=== PATIENT | female | born 1945 | race Caucasian/White ===

== ENCOUNTER → 2016-10-06 | Outpatient (CLI) | payer MEDICARE, OTHER ==
[~2016-10-06] VITALS: Ht 160 cm; Wt 161.0 kg
[~2016-10-06] MED LIST: CHLORHEXIDINE GLUCONATE 2 % 1 PACK (2 CLOTHS) TOPICAL PRN; CHOL5000 PO; FENO160T PO; FOLI1TAB6 PO; GABA300C5 PO; INSULIN HUMAN REGULAR 1,000 UNITS/10 ML VIAL SQ PRN; LACTATED RINGER'S 1000 ML IV PRN; LISI10TA3 PO; METOPROLOL TARTRATE 25 MG TAB PO PRN; NOVO7030P2 SQ; PLAQ200T PO; POVIDONE IODINE 5% (ANTISEPSIS KIT) 4 APPLICATIONS EACH NARE PRN; PRAV40TA2 PO; PROPOFOL 200 MG/20 ML AMP IV ONE; SODIUM CHLORID 0.9% 500 ML IV PRN; TYLE325T PO
[2016-10-06 07:25] VITALS: BP 127/69; PULSE 61; RESP 20; TEMP 97.6; O2SAT 96
--- NOTE | 2016-10-06 08:53 | GIPROC ---
[facility] [address] [facility]. 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 TOPICAL ANESTHETIC: none CONSENT: The patient understands the risks and benefits of the procedure and understands that these risks include, but are not limited to: sedation, allergic reaction, infection, perforation and/or bleeding. Alternative means of evaluation and treatment include, among others: physical exam, x-rays, and/or surgical intervention. The patient elects to proceed with this endoscopic procedure. medical equipment was checked for proper function. Hand hygiene and appropriate measures for infection prevention was taken. After the risks, benefits and alternatives of the procedure were thoroughly explained, Informed consent was verified, confirmed and timeout was successfully executed by the treatment team. The patient was anesthetized with anesthesia and the Pentax EG-[id number] endoscope was introduced through the mouth and advanced to the anastomosis. There was stricture at the anastomosis that the scope snugly passed through. 18 ballon dilator was used to dilated structure. This was done x3 for 30seconds at a time. Post dilation stricture was more patent scope passed easily through, no bleeding. The blind limb is 2cm in lenght appropriate size. The instrument was slowly withdrawn as the mucosa was fully examined. Stricture of gastrojejunostomy. Dilation was performed at gastrojejunostomy. DILATOR: SIZE(S): RESISTANCE: HEME: APPEARANCE: Dilator: Balloon over guidewire Size(s): 18 Resistance: moderate Appearance: adequate COMMENT: dilated x3 Retroflexion was not performed ADVERSE EVENTS: There were no complications. IMPRESSIONS: 1. Stricture of gastrojejunostomy 2. Retroflexion was not performed RECOMMENDATIONS: Continue PPI REPEAT EXAM: Return as needed for EGD with dilatation Jimmie Vaca MD eSigned: Jimmie Vaca MD 10/06/2016 8:53 AM cc: Kayode Orellana M.D.
[2016-10-06 09:20] VITALS: BP 126/65; PULSE 58; RESP 18; O2SAT 99
== END ==
LOC: HEND 05:32
PROVIDERS: ATTEND Surgery
DX: Z01.818 Encounter for other preprocedural examination (principal); E66.01 Morbid (severe) obesity due to excess calories; I10 Essential (primary) hypertension; E11.9 Type 2 diabetes mellitus without complications; Z79.4 Long term (current) use of insulin; R19.8 Other specified symptoms and signs involving the digestive system and abdomen; Z72.4 Inappropriate diet and eating habits
CPT/HCPCS: 88305; 88312

== ENCOUNTER 2016-12-09 14:41 | Inpatient (IN) | payer OTHER, MEDICARE ==
[~2016-12-09] VITALS: Ht 157.5 cm; Wt 116.0 kg
[~2016-12-09 14:41] MED LIST changes: -CHLORHEXIDINE GLUCONATE 2 % 1 PACK (2 CLOTHS) TOPICAL PRN; -INSULIN HUMAN REGULAR 1,000 UNITS/10 ML VIAL SQ PRN; -LACTATED RINGER'S 1000 ML IV PRN; -METOPROLOL TARTRATE 25 MG TAB PO PRN; -POVIDONE IODINE 5% (ANTISEPSIS KIT) 4 APPLICATIONS EACH NARE PRN; -PROPOFOL 200 MG/20 ML AMP IV ONE; -SODIUM CHLORID 0.9% 500 ML IV PRN
[2016-12-12 05:35] VITALS: BP 116/67; PULSE 72; RESP 18; TEMP 98.1; O2SAT 97
[2016-12-12] MEDS ORDERED: APREPITANT 40 MG CAP ONE (06:36)
[2016-12-12] MEDS ORDERED: SCOPOLAMINE 1.5 MG PATCH ONE (06:36)
[2016-12-12] MEDS ORDERED: ONDANSETRON HCL 4 MG/2 ML VIAL ONE (06:37)
[2016-12-12] MEDS ORDERED: LACTATED RINGER'S 1000 ML INJ 1,000 ML ONE (06:37)
[2016-12-12] MEDS ORDERED: ceFAZolin 2 GM PREMIX 50 ML ONE (06:37)
[2016-12-12] MEDS ORDERED: ACETAMINOPHEN 1000 MG/100 ML VIAL IV ONE (06:37)
[2016-12-12] MEDS ORDERED: SODIUM CHLORID 0.9% 500 ML IV PRN (06:45)
[2016-12-12] MEDS ORDERED: ONDANSETRON HCL 4 MG/2 ML VIAL IV PUSH SCH (06:45)
[2016-12-12] MEDS ORDERED: SCOPOLAMINE 1.5 MG PATCH T-DERMAL SCH (06:45)
[2016-12-12] MEDS ORDERED: METOPROLOL TARTRATE 25 MG TAB PO PRN (06:45)
[2016-12-12] MEDS ORDERED: LACTATED RINGER'S 1000 ML IV PRN (06:45)
[2016-12-12] MEDS ORDERED: ceFAZolin 2 GM PREMIX 50 ML IV SCH (06:45)
[2016-12-12] MEDS ORDERED: POVIDONE IODINE 5% (ANTISEPSIS KIT) 4 APPLICATIONS EACH NARE PRN (06:45)
[2016-12-12] MEDS ORDERED: CHLORHEXIDINE GLUCONATE 2 % 1 PACK (2 CLOTHS) TOPICAL PRN (06:45)
[2016-12-12] MEDS ORDERED: APREPITANT 40 MG CAP PO SCH (06:45)
[2016-12-12] MEDS ORDERED: BUPIVACAINE/EPINEPHRINE 0.25% 50 ML VIAL ONE (06:52)
[2016-12-12] MEDS: ACETAMINOPHEN 1000 MG/100 ML VIAL IV SCH ×5 (06:54→19:29)
[2016-12-12] MEDS ORDERED: metroNIDAZOLE 500 MG INJ 100 ML IV ONE (07:22)
[2016-12-12] MEDS ORDERED: METHYLENE BLUE 100 MG/10 ML VIAL OTHER ONE (07:53)
[2016-12-12] MEDS ORDERED: diphenhydrAMINE HCL 50 MG/ML VIAL IV PRN (10:15)
[2016-12-12] MEDS ORDERED: ACETAMINOPHEN 325MG/HYDROcodone 7.5MG/15ML UDC PO PRN (10:15)
[2016-12-12] MEDS ORDERED: HYDROmorphone HCL 2 MG TAB PO PRN (10:15)
[2016-12-12] MEDS ORDERED: diphenhydrAMINE HCL ELIXIR 12.5 MG/5 ML CUP PO PRN (10:15)
[2016-12-12] MEDS ORDERED: ENALAPRILAT 1.25 MG/ML VIAL IV PUSH PRN (10:15)
[2016-12-12] MEDS ORDERED: SODIUM CHLORIDE 0.9% FLUSH 10 ML FLUSH PRN (10:15)
[2016-12-12] MEDS: PANTOPRAZOLE SOD 40 MG DELAYED RELEASE TAB PO SCH (10:15)
[2016-12-12] MEDS ORDERED: ONDANSETRON HCL 4 MG/2 ML VIAL IV PRN ×2 (10:15→12:00)
[2016-12-12] MEDS ORDERED: Post-op Orders (for Pharmacy) MISC OTHER ONE (10:22)
[2016-12-12] MEDS ORDERED: fentaNYL CITRATE 250 MCG/5 ML AMP ONE (10:29)
[2016-12-12] MEDS: D5-1/2 NS + KCL 20 MEQ INJ 1,000 ML IV SCH ×2 (10:30→18:09)
[2016-12-12] MEDS ORDERED: *morphine SULFATE 8 MG/ML PERIprocedure ONLY ONE (10:52)
[2016-12-12] MEDS: PANTOPRAZOLE SODIUM 40 MG VIAL IV PUSH SCH (11:00)
--- NOTE | 2016-12-12 11:39 | HHI.PR ---
Immediate Post Op Note Procedure Date: Dec 12, 2016 Pre Op Diagnosis: morbid obesity BMI 45, yulissa, ra, htn, dm Post Op Diagnosis: same Surgeon: Jimmie Vaca MD Mobile Mechanic(s): Dr. Kayode Orellana Procedure: lap RYGB, HH Repair Findings: no leak with methylene blue Complications: none Specimen(s) removed: none Estimated blood loss: 10cc Anesthesia: General Drains: None Patient to: PACU Patient Condition: Good Jimmie Vaca MD Dec 12, 2016 11:39
[2016-12-12] MEDS ORDERED: LACTATED RINGER'S 1000 ML INJ 1,000 ML IV ONE (12:00)
[2016-12-12] MEDS ORDERED: ePHEDrine/NS 25 MG/5 ML SYR IV ONE (12:00)
[2016-12-12] MEDS ORDERED: ONDANSETRON HCL 4 MG/2 ML VIAL IV PUSH ONE (12:00)
[2016-12-12] MEDS ORDERED: NEOSTIGMINE 3 MG/3 ML SYR IV ONE (12:00)
[2016-12-12] MEDS ORDERED: PROPOFOL 200 MG/20 ML AMP IV ONE (12:00)
[2016-12-12] MEDS ORDERED: PHENYLEPH/NS 1000 MCG/10 ML SYR IV ONE (12:00)
[2016-12-12] MEDS: ACETAMINOPHEN 325MG/HYDROcodone 7.5MG/15ML UDC PO PRN ×2 (12:05→17:52)
[2016-12-12] MEDS: METOCLOPRAMIDE HCL 10 MG/2 ML VIAL IV PUSH SCH ×2 (12:06→17:53)
[2016-12-12] MEDS: metroNIDAZOLE 500 MG INJ 100 ML IV SCH (15:20)
[2016-12-12 16:00] VITALS: BP 162/73; PULSE 84; RESP 17; TEMP 95.4; O2SAT 96
[2016-12-12 16:19] VITALS: O2SAT 96
[2016-12-12] MEDS: RESP: ALBUTEROL 2.5 MG/3 ML NEB (SCH) INH ×3 (16:19→23:54)
[2016-12-12] MEDS ORDERED: MORPHINE SULFATE 4 MG/ML INJ IV PRN (17:00)
[2016-12-12] MEDS: ENOXAPARIN SODIUM 40 MG/0.4 ML SYRINGE SQ SCH (18:01)
[2016-12-12 20:00] VITALS: BP 178/73; PULSE 88; RESP 18; TEMP 96.6; O2SAT 93
[2016-12-12] MEDS: SODIUM CHLOR 0.9% 1000 ML INJ 1,000 ML IV SCH (20:30)
[2016-12-12] MEDS: LOW DOSE INSULIN NOVOLIN REGULAR SUPPLEMENTAL SCALE SQ SCH (21:00)
[2016-12-12] MEDS: SODIUM CHLORIDE 0.9% FLUSH 10 ML FLUSH IV FLUSH SCH (21:00)
[2016-12-12] MEDS ORDERED: DEXTROSE 50% IN WATER 50 ML VIAL(D50) IV PUSH PRN (21:15)
[2016-12-12] MEDS ORDERED: GLUCAGON 1 MG/ML VIAL OTHER PRN (21:15)
[2016-12-12] MEDS: INSULIN HUMAN REGULAR 1,000 UNITS/10 ML VIAL SQ PRN (22:12)
[2016-12-12 23:57] VITALS: O2SAT 95
[2016-12-13] VITALS (9 sets, daily range): BP systolic 119–159; BP diastolic 59–72; PULSE 62–86; RESP 15–20; TEMP 96.7–97.5; O2SAT 92–97
[2016-12-13] MEDS: METOCLOPRAMIDE HCL 10 MG/2 ML VIAL IV PUSH SCH ×2 (00:29→06:07)
[2016-12-13] MEDS: metroNIDAZOLE 500 MG INJ 100 ML IV SCH ×2 (00:30→10:40)
[2016-12-13] MEDS: ACETAMINOPHEN 1000 MG/100 ML VIAL IV SCH ×3 (01:56→06:25)
[2016-12-13] MEDS: RESP: ALBUTEROL 2.5 MG/3 ML NEB (SCH) INH ×6 (04:00→23:51)
[2016-12-13] MEDS: SODIUM CHLOR 0.9% 1000 ML INJ 1,000 ML IV SCH ×3 (04:30→21:06)
[2016-12-13 05:18] LABS: AUTOMATED NEUTROPHIL # 11.1 TH/MM3 (1.8-7.7); BASOPHIL % 0.2 % (0.0-2.0); EOSINOPHIL % 0.1 % (0.0-4.0); HEMO FLAGS DIFF FINAL; LYMPH % 7.4 % (9.0-44.0); LYMPHOCYTE # 0.9 TH/MM3 (1.0-4.8); MEAN CELL VOLUME 91.5 FL (80.0-100.0); MEAN CORPUSCULAR HEMOGLOBIN 29.2 PG (27.0-34.0); MEAN CORPUSCULAR HGB CONC 31.9 % (32.0-36.0); MONO % 5.4 % (0.0-8.0); NEUT % 86.9 % (16.0-70.0); PLATELET COUNT 245 TH/MM3 (150-450); RED BLOOD COUNT 4.37 MIL/MM3 (4.00-5.30); WHITE BLOOD COUNT 12.7 TH/MM3 (4.0-11.0)
[2016-12-13 05:32] LABS: MAGNESIUM 2.1 MG/DL (1.5-2.5)
[2016-12-13] MEDS: INSULIN HUMAN REGULAR 1,000 UNITS/10 ML VIAL SQ PRN (06:23)
[2016-12-13] MEDS: LOW DOSE INSULIN NOVOLIN REGULAR SUPPLEMENTAL SCALE SQ SCH ×2 (06:25→11:47)
[2016-12-13] MEDS: SODIUM CHLORIDE 0.9% FLUSH 10 ML FLUSH IV FLUSH SCH ×2 (09:00→21:02)
[2016-12-13] MEDS: PANTOPRAZOLE SOD 40 MG DELAYED RELEASE TAB PO SCH (09:00)
[2016-12-13] MEDS: ACETAMINOPHEN 325MG/HYDROcodone 7.5MG/15ML UDC PO PRN ×2 (09:59→23:49)
[2016-12-13] MEDS: PANTOPRAZOLE SODIUM 40 MG VIAL IV PUSH SCH (10:02)
--- NOTE | 2016-12-13 10:21 | HHI.PR ---
Subjective Subjective Notes 71yo female POD#1 laparoscopic RNY and Hiatal hernia repair. Sitting up in chair. Complains of some nausea and post op tenderness. Tolerating PO fluids. No flatus yet Objective Vitals/I&O Vital Signs Date Time Temp Pulse Resp B/P Pulse Ox O2 Delivery O2 Flow Rate FiO2 12/13/16 04:00 97.4 83 20 144/65 93 12/13/16 00:00 97.5 86 18 119/59 92 12/12/16 23:57 95 21 12/12/16 20:00 96.6 88 18 178/73 93 12/12/16 16:19 96 Nasal Cannula 2.00 12/12/16 16:00 95.4 84 17 162/73 96 12/12/16 11:25 79 18 137/5 94 Nasal Cannula 2 12/12/16 11:15 80 18 133/60 93 Nasal Cannula 2 12/12/16 11:00 74 18 131/62 92 Nasal Cannula 2 12/12/16 10:45 75 18 129/55 94 Nasal Cannula 2 12/12/16 10:30 79 18 126/59 95 Nasal Cannula 4 12/12/16 10:23 97.5 84 18 134/63 99 Simple Mask 10 Vital Signs Date Time Temp Pulse Resp B/P Pulse Ox O2 Delivery O2 Flow Rate FiO2 12/13/16 04:00 97.4 83 20 144/65 93 12/12/16 23:57 21 12/12/16 16:19 Nasal Cannula 2.00 Labs Laboratory Tests Test 12/13/16 04:16 White Blood Count 12.7 Red Blood Count 4.37 Hemoglobin 12.7 Hematocrit 40.0 Mean Corpuscular Volume 91.5 Mean Corpuscular Hemoglobin 29.2 Mean Corpuscular Hemoglobin 31.9 Concent Red Cell Distribution Width 13.0 Platelet Count 245 Mean Platelet Volume 8.8 Neutrophils (%) (Auto) 86.9 Lymphocytes (%) (Auto) 7.4 Monocytes (%) (Auto) 5.4 Eosinophils (%) (Auto) 0.1 Basophils (%) (Auto) 0.2 Neutrophils # (Auto) 11.1 Lymphocytes # (Auto) 0.9 Monocytes # (Auto) 0.7 Eosinophils # (Auto) 0.0 Basophils # (Auto) 0.0 CBC Comment DIFF FINAL Differential Comment Sodium Level 134 Potassium Level 5.0 Chloride Level 102 Carbon Dioxide Level 23.0 Anion Gap 9 Blood Urea Nitrogen 38 Creatinine 1.63 Estimat Glomerular Filtration 31 Rate Random Glucose 228 Calcium Level 9.1 Magnesium Level 2.1 Cardiovascular: Regular Lungs: Clear Abdomen: Post-op tenderness Extremities: Perfused Wound Wound : Wound Location: Abdomen Appearance: Clean & Dry A/P Assessment and Plan Continue with frequent ambulation Continue to increase fluids as tolerated Adjust insulin SS, acute checks Discharge Planning D/C home either later today or tomorrow Attending Statement patient seen and examined doing well bs high but much improved, will adjust scale to medium continue bariatric liquids d/c planning Attestation The exam, history, and the medical decision-making described in the above note were completed with the assistance of the mid-level provider. I reviewed and agree with the findings presented. I attest that I had a gluh-jn-huoe encounter with the patient on the same day, and personally performed and documented my assessment and findings in the medical record. Ester Tran Dec 13, 2016 10:21 Jimmie Vaca MD Dec 14, 2016 10:44
[2016-12-13] MEDS: LISINOPRIL 10 MG TAB PO SCH (11:51)
[2016-12-13] MEDS ORDERED: METOCLOPRAMIDE HCL 10 MG/2 ML VIAL IV PUSH PRN (12:00)
[2016-12-13] MEDS: ENOXAPARIN SODIUM 40 MG/0.4 ML SYRINGE SQ SCH (14:30)
[2016-12-13] MEDS ORDERED: SCOPOLAMINE 1.5 MG PATCH T-DERMAL ONE (15:00)
[2016-12-13] MEDS: INSULIN NovoLIN REGULAR SUPPLEMENTAL SCALE SQ SCH ×2 (16:48→21:00)
[2016-12-13] MEDS: GABAPENTIN 300 MG CAP PO SCH (21:02)
[2016-12-14] MEDS: RESP: ALBUTEROL 2.5 MG/3 ML NEB (SCH) INH ×2 (03:19→07:49)
[2016-12-14] MEDS: SODIUM CHLOR 0.9% 1000 ML INJ 1,000 ML IV SCH (04:46)
[2016-12-14] MEDS: ACETAMINOPHEN 325MG/HYDROcodone 7.5MG/15ML UDC PO PRN ×2 (05:41→11:57)
[2016-12-14] MEDS: INSULIN NovoLIN REGULAR SUPPLEMENTAL SCALE SQ SCH ×2 (07:00→11:00)
[2016-12-14 07:50] VITALS: O2SAT 95
[2016-12-14 08:00] VITALS: BP 127/60; PULSE 71; RESP 20; TEMP 98.1; O2SAT 97
[2016-12-14] MEDS: PANTOPRAZOLE SOD 40 MG DELAYED RELEASE TAB PO SCH (08:40)
[2016-12-14] MEDS: SODIUM CHLORIDE 0.9% FLUSH 10 ML FLUSH IV FLUSH SCH (08:41)
[2016-12-14] MEDS: LISINOPRIL 10 MG TAB PO SCH (08:41)
[2016-12-14] MEDS: GABAPENTIN 300 MG CAP PO SCH (08:41)
[2016-12-14] MEDS: PANTOPRAZOLE SODIUM 40 MG VIAL IV PUSH SCH (08:41)
--- NOTE | 2016-12-14 09:25 | MP ---
cc: WINSTON VACA MD DATE OF SURGERY 12/12/2016 PREOPERATIVE DIAGNOSES 1. Morbid obesity, BMI 46.8. 2. Obstructive sleep apnea. 3. Hypertension. 4. Diabetes. 5. Rheumatoid arthritis. POSTOPERATIVE DIAGNOSES 1. Morbid obesity, BMI 46.8. 2. Obstructive sleep apnea. 3. Hypertension. 4. Diabetes. 5. Rheumatoid arthritis. PROCEDURE PERFORMED Laparoscopic Jt-en-Y gastric bypass with hiatal hernia repair. SURGEON Dr. Winston Vaca CHIEF COOK Dr. Kayode Orellana needed due to the complexity of the laparoscopic case. Dr. Orellana assisted with the camera control and retraction. ANESTHESIA GETA. IV FLUIDS See anesthesia sheet. ESTIMATED BLOOD LOSS 10 mL. DRAINS None. COMPLICATIONS None. WOUND CLASSIFICATION Clean, contaminated. FINDINGS No leak on methylene blue installment through gastrojejunostomy anastomosis. INDICATION The patient is a 71-year-old female who presents with morbid obesity, multiple medical comorbidities including a BMI 46.8, obstructive sleep apnea, hypertension, diabetes mellitus. She has had multiple attempts at weight loss without success. Therefore decision was made after cardiac, psychiatric, dietitian, EGD evaluation for bariatric surgery. Discussion for gastric bypass. PROCEDURE IN DETAIL The patient was taken to the operating suite, placed in supine position. She was prepped and draped in usual sterile fashion after induction of general endotracheal anesthesia. Brief time-out done stating correct patient, procedure, surgical site and we were all in agreement with this. Attention was directed to the umbilicus. Superior to this 18 cm distal to the xyphoid at the midline local anesthetic was injected. Stab shiraz incision was made with 11-blade. OptiVu port was placed under direct vision and pneumoperitoneum was created. Insufflated to 15 mmHg. Under direct vision several other ports placed one 5 mm left upper quadrant port, followed by a 12 mm left lower quadrant port, followed by a 12 mm right lower quadrant port and a 5 mm right upper quadrant port. Prior to ports local anesthetic injected. The patient was tilted toward the right and omentum was grasped and identified. Small adhesions were taken down, noted a very small umbilical hernia containing omentum was also reduced. The omentum was split down the middle creating a past for the Jt limb to pass over the colon. Ligament of Treitz was identified and the small bowel was walked 40 cm distally to this. The small bowel was divided using a Endo-TANIA echelon stapler with seam guard. Distal segment was brought up a distance of 100 cm. Enterotomies were created to both limbs and the biliopancreatic limb a pewa-ux-zfue stapled jejunojejunostomy was created using an Endo-TANIA stapler. The completion of the sxurgpg-iyo-eajcida layer was stapled with an Endo-TANIA stapler for approximation. The clips were then placed for hemostasis of the staple line. A 0 silk was used to anatomically secure the jejunojejunostomy to itself. The patient was then placed in reverse Trendelenburg and airplaned to the right. Heavenly flex retractor was placed and left lobe of the liver was retracted. Angle of His was bluntly taken down with harmonic scalpel. Approximately 5 cm distal to this the GE junction and lesser curve were identified. The lesser sac was entered. Upon gross inspection there was noted to be a hiatal hernia. At this point hiatal hernia and hiatal dissection were done. This was done to identify the left markos and taken down circumferentially anteriorly in order to mobilize the esophagus and reduce the GE junction appropriately intra-abdominally. Once full mobilization was done the markos were reapproximated anteriorly with non absorbable 0 silk suture in a tgiyol-uv-qtmsl fashion. Next the lesser sac was entered using blunt dissection, the stomach was transected horizontally using Endo-TANIA 60 stapler. We confirmed that no ng tubes or esophageal probes were in place prior to stapling. This was done with a blue load. Additional firings were taken to the angle of His to completely divide the stomach. A gastrotomy was created in the new pouch. Enterotomy and also the Jt limb was created with Harmonic scalpel. The gastrojejunal ostomy was created 2.5 cm with Endo-TANIA stapler connecting the msiiwdu-bch-ekknfec layer. An 18 Lithuanian OG tube was then advanced across the anastomosis and the defect was closed with a running 2-0 Polysorb endo suture times two. This was the initial single layer. Methylene blue was installed through the OG tube to confirm no leakage was noted. Second layer was then placed in a running fashion with a lacratie to secure. Next, Evicel was then placed over the gastrojejunostomy and jejunojejunostomy and all staple lines. Hemostasis was obtained. The attention was then directed to the mesenteric defect at the jejunojejunostomy was closed with a 2-0 Surgidac suture in a running fashion. Next the two 12 ports were removed and 0 Vicryl was used to approximate the port sites. Pneumoperitoneum was released and the trocars were removed under direct visualization. 4-0 Monocryl used to a subcuticular fashion to close all incisions. Sterile dressings were then placed. The patient tolerated the procedure well. There was no intraoperative complication. All lap and instrument counts were correct at the end of the procedure. The patient was extubated and taken to the PACU. MD RON Montez/CORBIN /5:19 PM /9:17 AM MTDAbiodun
--- NOTE | 2016-12-14 09:55 | HHI.PR ---
Subjective Subjective Notes Sitting in chair Feels good Passing Flatus, tolerating PO fluids Blood sugars under better control Objective Vitals/I&O Vital Signs Date Time Temp Pulse Resp B/P Pulse Ox O2 Delivery O2 Flow Rate FiO2 12/14/16 08:00 98.1 71 20 127/60 97 12/13/16 15:34 21 12/12/16 16:19 Nasal Cannula 2.00 Cardiovascular: Regular Lungs: Clear Abdomen: Post-op tenderness Extremities: Perfused Wound Wound : Wound Location: Abdomen Appearance: Clean & Dry A/P Assessment and Plan 71yo female POD#2 laparoscopic RNY with hiatal hernia repair Continue with frequent ambulation Continue to increase fluids as tolerated Sliding scale medium dose given Discharge Planning D/C home today Attending Statement patient seen at bedside doing well blood sugars better controlled no nausea d/c home Attestation The exam, history, and the medical decision-making described in the above note were completed with the assistance of the mid-level provider. I reviewed and agree with the findings presented. I attest that I had a wbay-uj-uvse encounter with the patient on the same day, and personally performed and documented my assessment and findings in the medical record. Ester Tran Dec 14, 2016 09:54 Jimmie Vaca MD Dec 15, 2016 21:24
[2016-12-14] MEDS ORDERED: RESP: ALBUTEROL 2.5 MG/3 ML NEB (SCH) ONE (10:42)
[2016-12-16] MEDS ORDERED: REMOVE OLD PATCH T-DERMAL ONE (15:00)
== END 2016-12-14 12:54 | disposition home or self-care (01) | DRG 621 ==
LOC: HSDI 12-12 05:21 → N07A 12-12 11:37
PROVIDERS: ADMIT Surgery; ATTEND Surgery
PROC: 0D164ZA Bypass Stomach to Jejunum, Percutaneous Endoscopic Approach (ICD-10-PCS; principal; 2016-12-12 07:23)
PROC: 0BQS4ZZ (ICD-10-PCS; 2016-12-12 07:23)
DX: E66.01 Morbid (severe) obesity due to excess calories (principal); E11.22 Type 2 diabetes mellitus with diabetic chronic kidney disease; N18.3 Chronic kidney disease, stage 3 (moderate); Z68.42 Body mass index [BMI] 45.0-49.9, adult; G47.33 Obstructive sleep apnea (adult) (pediatric); I12.9 Hypertensive chronic kidney disease with stage 1 through stage 4 chronic kidney disease, or unspecified chronic kidney disease; M06.9 Rheumatoid arthritis, unspecified; E78.5 Hyperlipidemia, unspecified; K44.9 Diaphragmatic hernia without obstruction or gangrene
CPT/HCPCS: 76937; 80048; 82948; 83735; 85025; 94150; 94640; 94664; C9113; J0131; J0690; J1650; J1815; J2270; J2370; J2405; J2710; J2765; J3010; J3480; J7030; J7120; J7613; J8501